=== PATIENT | male | born 1965 | race Caucasian/White ===

== ENCOUNTER 2019-04-22 16:55 | Emergency (ER) | payer OTHER ==
--- OUTSIDE RECORDS SUMMARY | 2019-04-22 17:05 | XMS REPORT | Continuity of Care Document ---
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 Jacinto Zavala MD Primary Care Physician Unavailable Payers Date Identification Numbers Payment Provider Subscriber Policy Number: [id number] Cosme Wilson PayID: [id number] [address] [place] [address] Problems Active Problems Provider Date Flatulence, eructation and gas pain Charlette Bhagat PA-C Onset: 2018 Generalized abdominal pain Charlette Bhagat PA-C Onset: 03/22/2019 Gastroesophageal reflux disease Charlette Bhagat PA-C Onset: 03/22/2019 Diarrhea Charlette Bhagat PA-C Onset: 03/22/2019 Type 2 diabetes mellitus Charlette Bhagat PA-C Onset: 04/05/2019 Essential hypertension Charlette Bhagat PA-C Onset: 04/05/2019 Social History Type Date Description Comments Sex Unknown Tobacco Use Start: Unknown Heavy tobacco smoker (more than 10 cigarettes/day) Smoking Status Reviewed: 04/04/19 Heavy tobacco smoker (more than 10 cigarettes/day) Allergies, Adverse Reactions, Alerts Active Allergies Reaction Severity Comments Date Aspirin 02/20/2019 Sulfa Antibiotics 02/20/2019 Medications Active Medications SIG Qnty Indications Ordering Date Provider Suprep Bowel Prep Kit as directed 1units Irma 04/02/2019 MD Jose 17.5-3.13-1.6GM/177ML Solution Imodium A-D 1 tab by mouth 60tabs R19.7 [facility] 02/08/2019 2mg Tablets twice a day as needed Hydrocortisone apply to rectal 90units K64.9 [facility] 10/13/2018 2.5% Cream area twice a day as needed Sildenafil Citrate take 1 tablet 10tabs N52.9 [facility] 10/13/2018 100mg once daily if Tablets needed Hydrocortisone Acetate [address] of 60units K64.9 [facility] 08/03/2018 30mg rectum twice a Suppository day as needed Metformin HCL ER take 1 tablet by 180tabs E11.65 [facility] 08/10/2017 750mg mouth twice a Tablets ER 24HR day Neurontin 1 cap by mouth 180caps E11.65 [facility] 03/31/2017 300mg Capsules twice a day Metoprolol Succinate ER 1 by mouth every 90tabs I10 [facility] 04/05/2016 day 100mg Tablets ER 24HR Cyclobenzaprine HCL take 1 tablet by 90tabs R51 [facility] 06/24/2015 10mg mouth 3 times a Tablets day as needed for muscle spasms Allopurinol take 1 tablet by 90tabs M10.9 [facility] 05/20/2014 100mg Tablets mouth every day Tramadol HCL 1 tab by mouth 60tabs M15.9 [facility] 03/09/2012 50mg Tablets twice a day Prilosec take one capsule 90caps K21.0 [facility] 03/09/[address] by mouth every day as needed Citalopram Hydrobromide take 1 tablet by 90tabs F32.9 [facility] 2011 mouth every day 20mg Tablets History Medications Miralax 1-2 caps by mouth 1020units K58.1 [facility] 04/05/2016 - 3350NF every day 03/22/2019 Powder Vital Signs Date Vital Result Comment 04/04/2019 9:13am Height 70 inches 5'10" Weight 216.00 lb BMI (Body Mass Index) 31.0 kg/m2 03/22/2019 10:01am Height 70 inches 5'10" Weight 218.00 lb BP Systolic 136 mmHg BP Diastolic 93 mmHg Heart Rate 83 /min BMI (Body Mass Index) 31.3 kg/m2 Results Test Date Facility Test Result H/L Range Note Laboratory test 03/24/20 [facility] [place] O&P Ova & Parasites <pending> finding 19 Screen Ova & Parasites 03/24/20 [facility] [place] Parasitic Exam, See Comment 1 Full 19 Result Cryptosporidium And 03/24/20 [facility] [place] Cryptosporidium Ag, Negative Negative 2 Giardia Ag 19 F Giardia Antigen, Feces Negative Negative 3 1 SOURCE: STOOL PARASITIC EXAMINATION FINAL No parasites seen. Cryptosporidium, Cyclospora, and microsporidia are not readily detected by this method. Single negative specimen does not rule out parasitic infection. Test Performed by: [address] [address] 2 Test Performed by: [address] [id number] 3 Test Performed by: [address] [address] Encounters Type Date Location Provider Dx Diagnosis Office Visit 03/22/2019 Gastroenterology Charlette De Leon R19.7 Diarrhea, 10:00a [facility] PA-C unspecified K21.9 Gastro-esophageal reflux disease without esophagitis R10.84 Generalized abdominal pain R14.0 Abdominal distension (gaseous) Plan of Treatment Future Appointment(s):04/20/2019 8:45 am - Irma Garcia MD at [facility]04/04/2019 - STEPHIE García-CK21.9 Gastro-esophageal reflux disease without mwaoqrrshdnT50.7 Diarrhea, zlieolhgqkeP65.0 Abdominal distension (gaseous)R10.84 Generalized abdominal pain
--- OUTSIDE RECORDS SUMMARY | 2019-04-22 17:05 | XMS REPORT | Continuity of Care Document ---
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 Jacinto Zavala MD Primary Care Physician Unavailable Payers Date Identification Numbers Payment Provider Subscriber Policy Number: [id number] Cosme Wilson PayID: [id number] [address] [place] [address] Problems Active Problems Provider Date Flatulence, eructation [...] A-D 1 tab by mouth 60tabs R19.7 [facility] 02/08/2019 2mg Tablets twice a day as needed Hydrocortisone apply to rectal 90units K64.9 [facility] 10/13/2018 2.5% Cream area twice a day as needed Sildenafil Citrate take 1 tablet 10tabs N52.9 [facility] 10/13/2018 100mg once daily if Tablets needed Hydrocortisone Acetate [address] of 60units K64.9 [facility] 08/03/2018 30mg rectum twice a Suppository day as needed Metformin HCL ER take 1 tablet by 180tabs E11.65 [facility] 08/10/2017 750mg mouth twice a Tablets ER 24HR day Neurontin 1 cap by mouth 180caps E11.65 [facility] 03/31/2017 300mg Capsules twice a day Metoprolol Succinate ER 1 by mouth every 90tabs I10 [facility] 04/05/2016 day 100mg Tablets ER 24HR Cyclobenzaprine HCL take 1 tablet by 90tabs R51 [facility] 06/24/2015 10mg mouth 3 times a Tablets day as needed for muscle spasms Allopurinol take 1 tablet by 90tabs M10.9 [facility] 05/20/2014 100mg Tablets mouth every day Tramadol HCL 1 tab by mouth 60tabs M15.9 [facility] 03/09/2012 50mg Tablets twice a day Prilosec take one capsule 90caps K21.0 [facility] 03/09/[address] by mouth every day as needed Citalopram Hydrobromide take 1 tablet by 90tabs F32.9 [facility] 2011 mouth every day 20mg Tablets History Medications Miralax 1-2 caps by mouth 1020units K58.1 [facility] 04/05/2016 - 3350NF every day 03/22/2019 Powder [...] Result H/L Range Note Laboratory test 03/24/20 [facility] [place] Ova & Parasites <pending> finding 19 Screen Ova & Parasites 03/24/20 [facility] [place]itic Exam, See Comment 1 Full 19 Result Cryptosporidium And 03/24/20 [facility] [place] Cryptosporidium Ag, Negative Negative 2 Giardia Ag 19 F Giardia Antigen, Feces Negative Negative 3 1 SOURCE: STOOL PARASITIC EXAMINATION FINAL No parasites seen. Cryptosporidium, Cyclospora, and microsporidia are not readily detected by this method. Single negative specimen does not rule out parasitic infection. Test Performed by: [place] [address] 2 Test Performed by: [place] [address] 3 Test Performed by: [place] [address] Plan of Treatment Future Appointment(s):04/20/2019 8:45 am - Irma Garcia MD at [facility]
--- OUTSIDE RECORDS SUMMARY | 2019-04-22 17:05 | XMS REPORT | Continuity of Care Document ---
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 Jacinto Zavala MD Primary Care Physician Unavailable Payers Date Identification Numbers Payment Provider Subscriber Policy Number: [id number] Cosme Wilson PayID: [id number] [address] [place] [address] Problems Active Problems Provider Date Flatulence, eructation [...] Test Result H/L Range Note Laboratory [place] 04/20/20 [facility] [place] RESULT 1, 2 finding 19 BELOW Laboratory test 03/24/20 [facility] [place] Ova & Parasites <pending> finding 19 Screen Ova & Parasites 03/24/20 [facility] [place] Exam, See Comment 3 Full 19 Result Cryptosporidium And 03/24/20 [facility] [place] Cryptospor[place] Ag, Negative Negative 4 Giardia Ag 19 F Giardia Antigen, Feces Negative Negative 5 1 [id number] 2 SEE RESULT BELOW Name: DESHAUN WILSON : [address]: Irma Garcia MD Acct: [id number] Unit: [id number] AGE: 53 Location: [facility] Re04/20/19 SEX: M Status: DEP REF SPEC: [id number] PARI: 04/20/19-[address] [facility] [address]: Irma Rodriguez MD REQ: [id number] RECD: 04/20/19-1233 STATUS: BABS AGRAWAL DR: Jacinto Zavala MD _ SOURCE: GAS ANTRUM [facility]: ORDERED: Clotest COMMENTS: [id number] Procedure Result Reported Site Clotest Final 04/21/19- 0809 ML Clotest Negative * ML - Main Lab . END OF REPORT DEPARTMENT OF PATHOLOGY, [address] [place] [address] Cuate Vasques M.D. Director [facility] # [id number] SEE RESULT BELOW Name: DESHAUN WILSON : [address]: Irma Garcia MD Acct: [id number] Unit: [id number] AGE: 53 Location: [facility] Re04/20/19 SEX: M Status: DEP REF SPEC: [id number] PARI: 04/20/19-[address] [facility] [address]: Irma Rodriguez MD REQ: [id number] RECD: 04/20/191238 STATUS: COMP KERIHR DR: Jacinto Zavala MD _ SOURCE: GAS ANTRUM [facility]: ORDERED: Clotest COMMENTS: [id number] Procedure Result Reported Site Clotest Final 04/21/19- 808 ML Clotest Negative * ML - Main Lab . END OF REPORT DEPARTMENT OF PATHOLOGY, [address] [place] [address] Cuate Vasques M.D. Director [facility] # [id number] SOURCE: STOOL PARASITIC EXAMINATION FINAL No parasites seen. Cryptosporidium, Cyclospora, and microsporidia are not readily detected by this method. Single negative specimen does not rule out parasitic infection. Test Performed by: [address] [address] Test Performed by: [address] [address] 5 Test Performed by: [address] [address] Encounters Type Date Location Provider Dx Diagnosis Office Visit 04/04/2019 Gastroenterology Charlette De Leon K21.9 Gastro- esophageal 9:15a [facility] reflux disease without esophagitis R19.7 Diarrhea, unspecified R14.0 Abdominal distension (gaseous) R10.84 Generalized abdominal pain Office Visit 03/22/2019 Gastroenterology Charlette De Leon R19.7 Diarrhea, 10:00a [facility] PA-C unspecified K21.9 Gastro-esophageal reflux disease without esophagitis R10.84 Generalized abdominal pain R14.0 Abdominal distension (gaseous)
[2019-04-22] MEDS ORDERED: Acetaminophen TAB* 325 MG PO ONE (22:13)
[2019-04-22 22:45] LABS: Rapid Strep Molecular Negative (Negative)
[2019-04-23] MEDS ORDERED: Lidocaine 2% VISCOUS* 15 ML UDC PO ONE (00:24)
--- NOTE | 2019-04-23 00:56 | ED ---
Upper Extremity Pain - HPI Summary HPI Summary: Patient complains of injury to second digit of left hand after hitting it with a hammer, and ongoing headache, sore throat and chills 2 days. Denies fever, cough, CP, SOB, N/V/D, abdominal pain, change in urine, change in BM. Denies any other pain or injury. Patient is status post endoscopy 2 days. - History of Current Complaint Chief Complaint: EDLacSutureRecheck Stated Complaint: HAND LAC PER PT Time Seen by Provider: 04/22/19 22:09 Hx Obtained From: Patient Mechanism Of Injury: Blunt Trauma Onset/Duration: Started Hours Ago Timing: Constant Severity Initially: Mild Severity Currently: Mild Pain Location: Finger Character: Dull Aggravating Factor(s): Movement Alleviating Factor(s): Rest Associated Signs & Symptoms: Positive: Swelling - Allergies/Home Medications Allergies/Adverse Reactions: Allergies Allergy/AdvReac Type Severity Reaction Status Date / Time aspirin Allergy Nausea Verified 04/22/19 17:01 ibuprofen Allergy nausea, Verified 04/22/19 17:01 vomiting, stomach pain Sulfa (Sulfonamide Allergy swelling Verified 04/22/19 17:01 Antibiotics) and hives PMH/Surg Hx/FS Hx/Imm Hx Endocrine/Hematology History: Reports: Hx Diabetes Cardiovascular History: Reports: Hx Hypertension History: Denies: Hx Dialysis Sensory History: Denies: Hx Legally Blind Opthamlomology History: Denies: Hx Eye Prosthesis EENT History: Denies: Hx Deafness Neurological History: Denies: Hx Developmental Delay Psychiatric History: Denies: Hx Autism Infectious Disease History: No Infectious Disease History: Denies: Traveled Outside the [place] in Last 30 Days - Family History Known Family History: Positive: Non-Contributory - Social History Alcohol Use: Rare Substance Use Type: Reports: None Smoking Status (MU): Never Smoked Tobacco Review of Systems Constitutional: Negative Eyes: Negative Positive: Sore Throat Cardiovascular: Negative Respiratory: Negative Gastrointestinal: Negative Genitourinary: Negative Musculoskeletal: Other Skin: Other Positive: Headache Psychological: Normal All Other Systems Reviewed And Are Negative: Yes Physical Exam - Summary Physical Exam Summary: ENT exam normal. Lung sounds clear to auscultation bilaterally. Full range of motion of neck. Obvious deformity to proximal phalanx of second digit of left hand. Abrasion over MCP joint of the second digit of left hand. PMS intact distally. No other trauma noted to hand. Triage Information Reviewed: Yes Vital Signs On Initial Exam: Initial Vitals Temp Pulse Resp BP Pulse Ox 97.1 F 102 16 130/92 98 04/22/19 16:57 04/22/19 16:57 04/22/19 16:57 04/22/19 16:57 04/22/19 16:57 Vital Signs Reviewed: Yes Appearance: Positive: Well-Appearing Skin: Positive: Warm Head/Face: Positive: Normal Head/Face Inspection Eyes: Positive: Normal ENT: Positive: Normal ENT inspection Neck: Positive: Supple Respiratory/Lung Sounds: Positive: Clear to Auscultation Cardiovascular: Positive: Normal Abdomen Description: Positive: Nontender Musculoskeletal: Positive: Normal Neurological: Positive: Normal Psychiatric: Positive: Normal AVPU Assessment: Alert - Leonardo Coma Scale Best Eye Response: 4 - Spontaneous Best Motor Response: 6 - Obeys Commands Best Verbal Response: 5 - Oriented Coma Scale Total: 15 Procedures - Splinting 1 Hand-Made Type: orthoglass Splint: radial gutter Pre-Proc Neuro Vasc Exam: normal Post-Proc Neuro Vasc Exam: normal Diagnostics - Vital Signs Vital Signs Temp Pulse Resp BP Pulse Ox 04/22/19 21:27 98.1 F 111 20 147/102 100 04/22/19 19:21 99.1 F 95 20 118/49 100 04/22/19 16:57 97.1 F 102 16 130/92 98 - Laboratory Lab Results: Lab Results 04/22/19 Range/Units 22:28 Group A Strep Rapid Negative (Negative) Lab Statement: Any lab studies that have been ordered have been reviewed, and results considered in the medical decision making process. Course/Dx - Course Course Of Treatment: Patient complains of injury to second digit of left hand after hitting it with a hammer, and ongoing headache, sore throat and chills 2 days. Denies fever, cough, CP, SOB, N/V/D, abdominal pain, change in urine, change in BM. Denies any other pain or injury.Patient is status post endoscopy 2 days. Physical exam:ENT exam normal. Lung sounds clear to auscultation bilaterally. Full range of motion of neck. Obvious deformity to proximal phalanx of second digit of left hand. Abrasion over MCP joint of the second digit of left hand. PMS intact distally. No other trauma noted to hand. Vital signs within normal limits. X-ray positive for proximal phalanx fracture. Radial gutter splint. Follow-up with orthopedics Dr. Damon for further evaluation. Throat pain likely secondary to endoscopy 3 days ago. Rx for viscous lidocaine. Rx for Pen-Vee K. Status post endoscopy 3 days ago. Radial gutter splint. Viscous lidocaine for sore throat. - Diagnoses Provider Diagnoses: Fracture of proximal phalanx of digit of hand, Sore throat Discharge - Sign-Out/Discharge Documenting (check all that apply): Patient Departure Patient Received Moderate/Deep Sedation with Procedure: No - Discharge Plan Condition: Stable Disposition: HOME Prescriptions: Lidocaine 2% VISCOUS* [Xylocaine 2% Viscous*] 15 ml SWISH SPIT Q6H PRN #1 btl PRN Reason: Pain Oxycodone HCl 5 mg PO Q6H 2 Days #6 tablet MDD 4 tabs Penicillin VK TAB* [Penicillin VK 250 mg Tab*] 500 mg PO QID 6 Days #24 tab Patient Education Materials: Finger Fracture (ED) Referrals: Jacinto Zavala MD [Primary Care Provider] - Keanu Damon MD [Medical Doctor] - Additional Instructions: Follow-up in one week with orthopedics Dr. Damon for further evaluation of finger fracture. Return to the ED for any new or worsening symptoms.Follow-up with your GI doctor for throat pain after endoscopy. Use lidocaine for sore throat pain as directed. Take antibiotics as directed. - Billing Disposition and Condition Condition: STABLE Disposition: Home
[2019-04-23] MEDS ORDERED: Penicillin VK TAB* 250 MG PO ONE (00:57)
[2019-04-23 01:21] VITALS: BP 145/98
== END 2019-04-23 01:21 | disposition home or self-care (01) ==
LOC: ED 16:55
DX: S62.611A Displaced fracture of proximal phalanx of left index finger, initial encounter for closed fracture (principal); J02.9 Acute pharyngitis, unspecified; W22.8XXA Striking against or struck by other objects, initial encounter; E11.9 Type 2 diabetes mellitus without complications; I10 Essential (primary) hypertension
CPT/HCPCS: 87651; 99282; A9270-GY